=== PATIENT | female | born 1950 | race Native Hawaiian/Other Pacific Islander ===

== ENCOUNTER 2017-06-13 06:56 | Day surgery (SDC) | payer MEDICARE ==
[2017-06-06 09:42] VITALS: BMI 28.1
[2017-06-13 07:34] VITALS: RESP 19
[2017-06-13] MEDS ORDERED: Propofol 10 mg/ml Inj (20 ML) ONE (08:43)
[2017-06-13] MEDS ORDERED: Lactated Ringer's 500 ML IV SCH (09:00)
[2017-06-13 09:43] VITALS: TEMP 98; O2SAT 100
[2017-06-13 10:02] VITALS: PULSE 71
[2017-06-13 10:18] VITALS: BP 110/72
== END 2017-06-13 11:09 | disposition home or self-care (01) ==
LOC: C.ENDO 06:56
PROVIDERS: ATTEND Internal Medicine Gastroenterology
DX: Z12.11 Encounter for screening for malignant neoplasm of colon (principal); D12.3 Benign neoplasm of transverse colon; K29.70 Gastritis, unspecified, without bleeding; B96.81 Helicobacter pylori [H. pylori] as the cause of diseases classified elsewhere; K44.9 Diaphragmatic hernia without obstruction or gangrene; K64.0 First degree hemorrhoids
CPT/HCPCS: 43239; 45385; 82948; 88305; J2704; J3010; J7120